=== PATIENT | male | born 2005 | race Hispanic/Latino ===

== ENCOUNTER 2023-02-10 18:43 | Emergency (ER) | payer SELFPAY ==
[2023-02-10] MEDS ORDERED: Ketorolac Tromethamine 30 MG/ML VIAL ONE (19:41)
[2023-02-10] MEDS ORDERED: traMADol HCl 50 MG TAB ONE (20:43)
== END 2023-02-10 22:10 | disposition home or self-care (01) ==
LOC: NAV ERS 18:43
DX: S52.571A Other intraarticular fracture of lower end of right radius, initial encounter for closed fracture (principal); S52.611A Displaced fracture of right ulna styloid process, initial encounter for closed fracture; W17.89XA Other fall from one level to another, initial encounter
CPT/HCPCS: 29125; 70450; 72125; 96372; J1885